=== PATIENT | female | born 1985 | race Caucasian/White ===

== ENCOUNTER 2019-08-15 20:11 | Emergency (ER) | payer OTHER ==
[~2019-08-15] VITALS: Ht 154.9 cm; Wt 80.7 kg
[2019-08-15] MEDS ORDERED: TILENOR (21:17)
[2019-08-15] MEDS ORDERED: [UNRECOGNIZED DRUG - OTHER] (21:18)
[2019-08-15] MEDS ORDERED: TECFIDERA (21:19)
[2019-08-15] MEDS ORDERED: TECFIDERA240 MG (21:19)
[2019-08-15] MEDS ORDERED: ZANTAC (21:19)
[2019-08-16] MEDS ORDERED: CORTISPORIN EAR10 M1 OT (02:05)
[2019-08-16] MEDS ORDERED: GILTUSS TR TAB1 EACH PO (02:07)
== END 2019-08-16 02:23 | disposition home or self-care (01) ==
LOC: ER 20:11
DX: R07.89 Other chest pain (principal)